=== PATIENT | female | born 1970 | race Caucasian/White ===

== ENCOUNTER 2018-03-11 10:28 | Day surgery (SDC) | payer OTHER ==
[2018-03-08 12:41] VITALS: BMI 21.0
[2018-03-11] MEDS ORDERED: PROPOFOL 20 ML ONE (12:21)
[2018-03-11] MEDS ORDERED: MIDAZOLAM HCL 2 MG/2 ML SINGLE DOSE VIAL ONE ×2 (12:21→13:59)
[2018-03-11] MEDS ORDERED: ONDANSETRON 4 MG/2 ML VIAL ONE (12:21)
[2018-03-11] MEDS ORDERED: LIDOCAINE HCL/PF 2% SDV 5ML VIAL ONE (12:21)
[2018-03-11] MEDS ORDERED: DEXAMETHASONE SOD PHOSPHATE 4 MG/1 ML VIAL ONE (12:21)
[2018-03-11] MEDS ORDERED: fentaNYL CITRATE 250 MCG/5 ML VIAL ONE (12:21)
[2018-03-11] MEDS ORDERED: LIDOCAINE 1%/EPI 1:100000 (20 ML MULTI DOSE VIAL) ONE (13:22)
[2018-03-11] MEDS ORDERED: DESFLURANE GAS 240 ML BOTTLE IH ONE (13:32)
[2018-03-11] MEDS ORDERED: DEXMEDETOMIDINE HCL 200 MCG/2 ML ML IVPB ONE (14:02)
[2018-03-11] MEDS ORDERED: ONDANSETRON 4 MG/2 ML VIAL IVPUSH PRN (14:07)
[2018-03-11] MEDS ORDERED: oxyCODONE HCL 5 MG TABLET PO PRN ×2 (14:07)
[2018-03-11] MEDS ORDERED: LIDOCAINE 1%/EPI 1:100000 (50 ML MULTI DOSE VIAL) INF ONE (14:13)
[2018-03-11] MEDS ORDERED: LACTATED RINGERS SOLUTION 1,000 ML IV SCH (14:15)
[2018-03-11] MEDS ORDERED: ceFAZolin SODIUM 1 GM VIAL ONE (14:17)
--- NOTE | 2018-03-11 14:48 | OP ---
Operative Note - Note: Operative Date: 03/11/18 Pre-Operative Diagnosis: Cosmetic Deformity of Implants Operation: Bilateral Breast Implant removal Findings: Left breast ruptured implant Surgeon: Amilcar Dee Anesthesia: MAC Specimens Removed: Bilateral breast silicone implants Estimated Blood Loss (mls): 5 Operative Report Dictated: Yes
[2018-03-11 17:48] VITALS: BP 102/57; PULSE 65; TEMP 98
--- NOTE | 2018-03-14 17:17 | OP ---
DATE OF OPERATION: 03/11/2018 SURGEON: Jaswinder Dee MD PREOPERATIVE DIAGNOSES: Cosmetic deformity of breast implants, left breast ruptured implant. POSTOPERATIVE DIAGNOSES: Cosmetic deformity of breast implants, left breast ruptured implant. OPERATIVE PROCEDURE: Explantation of bilateral breast implants. OPERATIVE INDICATION: The patient is a 47-year-old white female who, by her own decision, decided that she did not want her breast implants because of personal reasons. I discussed the risks and benefits, surgical versus nonsurgical alternatives as well as the material complications of the surgery and of the consequences of removing her breast implants and not replacing them. She understood that she may have a breast loss of volume and different deformity postoperatively. This discussion was held on multiple occasions, including today in the holding area with the patient's in attendance. OPERATIVE PROCEDURE IN DETAIL: The patient was taken to the operating room and, after induction of monitored care anesthesia in the supine position, both arms were extended and padded, Venodyne boots were placed. The entire chest wall was prepped with ChloraPrep solution over its entire extent. After a timeout, the previous incisions, which have scars in the inframammary incision, were injected with 1% local lidocaine anesthesia with 1:100,000 epinephrine. After allowing topical anesthesia and hemostasis, an incision was made down through the skin to the subcutaneous tissue of the right breast, down through the subcutaneous tissue to the underlying capsule. The capsule was then opened and the implant removed and sent for pathologic diagnosis. The exact same procedure was carried out symmetrically on the left breast through the incision, which measured approximately 3.5 cm in length. Upon opening the capsule of the left breast, the implant appeared to be ruptured. The ruptured implant was then removed and all of its contents also physically removed. A portion of the capsule was also excised in the lower portion of the breast, but was not sent to pathology, as there was no indication. At this point, copious irrigation with triple-antibiotic solution and saline was carried out on the entire pocket and the entire capsule was washed out completely. The wounds were then closed in layers using 3-0 Biosyn suture on the deep tissue, 3-0 Biosyn in a deep dermal fashion, and 4-0 Biosyn in a subcuticular fashion. Dry sterile dressings were placed over the wounds themselves. The patient was placed in a Fluff dressing with a Surgi-Bra, tolerated procedure well, was awakened, and transferred to the recovery room in satisfactory condition. JASWINDER DEE M.D. KEITH/[id number]
--- NOTE | 2018-03-16 10:56 | PATH ---
Surgical Pathology Report Patient Name: RINKU LUONG [facility]. Rec. #: [id number] /Age/Gender: 1970 (Age: 47) / F Account: [id number] Location: [facility] AMBUL[facility] Taken: 03/11/2018 Received: 03/12/2018 Reported: 03/16/2018 Physicians: Amilcar Dee Specimen(s) Received A: LEFT BREAST EXPLANTS B: RIGHT BREAST EXPLANTS Clinical History Breast pain Final Diagnosis A. BREAST IMPLANT, LEFT, REMOVAL: BREAST IMPLANT. MACROSCOPIC DIAGNOSIS. B. BREAST IMPLANT, RIGHT, REMOVAL: BREAST IMPLANT. MACROSCOPIC DIAGNOSIS. Electronically Signed Marquita Rede M.D. Gross Description A. Received fresh labeled "left breast explant," is a 12.5 x 12.5 x 3.0 cm focally disrupted breast implant. There is silicon material exuding from the implant into the container. No soft tissue is present. No sections are submitted, gross only. B. Received fresh labeled "right breast explant," is a 12.5 x 12.5 x 3.0 cm clear, rubbery, intact breast implant. No soft tissue is present. No sections are submitted, gross only. /03/15/2018 saudi03/15/2018
== END 2018-03-11 17:54 | disposition home or self-care (01) ==
LOC: FASU 10:28
PROVIDERS: ATTEND Plastic Surgery
PROC: 0HPT0JZ Removal of Synthetic Substitute from Right Breast, Open Approach (ICD-10-PCS; 2018-03-11)
PROC: 0HPU0JZ Removal of Synthetic Substitute from Left Breast, Open Approach (ICD-10-PCS; 2018-03-11)
PROC: 0HPU0JZ Removal of Synthetic Substitute from Left Breast, Open Approach (ICD-10-PCS; principal; 2018-03-11 12:00)
DX: T85.49XA Other mechanical complication of breast prosthesis and implant, initial encounter (principal); T85.43XA Leakage of breast prosthesis and implant, initial encounter; Y82.8 Other medical devices associated with adverse incidents; Y92.9 Unspecified place or not applicable; Y83.8 Other surgical procedures as the cause of abnormal reaction of the patient, or of later complication, without mention of misadventure at the time of the procedure
CPT/HCPCS: 84703; 88300-TC; 94760